=== PATIENT | male | born 1980 | race Caucasian/White ===

== ENCOUNTER 2018-04-29 09:58 | Emergency (ER) | payer SELFPAY ==
[~2018-04-29] VITALS: Ht 190.5 cm; Wt 147.0 kg
[2018-04-29 10:30] VITALS: BP 139/79
== END 2018-04-29 11:02 | disposition home or self-care (01) ==
LOC: ED 10:55
DX: K02.9 Dental caries, unspecified (principal); R05 Cough; Z87.891 Personal history of nicotine dependence
CPT/HCPCS: 71046; 99284